=== PATIENT | female | born 1955 | race Caucasian/White ===

== ENCOUNTER 2019-03-26 11:33 | Inpatient (IN) | payer MEDICARE, OTHER ==
[2019-03-26] MEDS ORDERED: NORMAL SALINE 500 ML IV ONE (11:53)
[2019-03-26] MEDS ORDERED: LORAZEPAM INJ 2 MG/1 ML VIAL IV ONE (11:53)
[2019-03-26] MEDS ORDERED: IPRATROPIUM/ALBUTEROL 0.5-2.5 MG/3 ML AMPUL NEB ONE ×2 (11:54→13:37)
[2019-03-26] MEDS ORDERED: METHYLPREDNISOLONE INJ 125 MG/2 ML SDV IV ONE (11:54)
--- NOTE | 2019-03-26 11:54 | ER Document Report ---
ED Respiratory Problem - General Stated Complaint: SHORTNESS OF BREATH Time Seen by Provider: 03/26/19 11:39 Primary Care Provider: MAYA LOPEZ MD [Primary Care Provider] - Follow up as needed Notes: 63-year-old female patient, smoker to the emergency department for evaluation of shortness of breath. Patient states that she has been short of breath for approximately 2 days. Getting worse. Movement makes it worse. Went to the [facility] doctor today and her heart rate was in the 130s and 140s so sent here by ambulance. Denies any chest pain. She does have some swelling of the ankles. Does complain of a cough and fever at home. - HPI Patient complains to provider of: COPD, Cough, Short of breath - Related Data Allergies/Adverse Reactions: Penicillins Allergy (Verified 03/26/19 12:24) Tetracyclines Allergy (Verified 03/26/19 12:24) Past Medical History - General Information source: Patient - Social History Smoking Status: Current Every Day Smoker Cigarette use (# per day): Yes Frequency of alcohol use: None Drug Abuse: None Family History: Reviewed & Not Pertinent - Medical History Notes: Diabetes, hypertension Review of Systems - Review of Systems Notes: Constitutional: denies: Chills, Diaphoresis, +Fever, -Malaise, -W-eakness EENT: denies: Eye discharge, Blurred vision, Tearing, Double vision, Nose simba estion, Nose discharge, Throat swelling, Mouth pain Cardiovascular: Denies chest pain. Does complain of heart racing and some dyspnea. Respiratory: Complaining of shortness of breath, cough, wheeze Gastrointestinal: denies: Abdominal pain, Diarrhea, Nausea, Vomiting, Black stools, bright red blood in stool Genitourinary: denies: Burning, Dysuria, Discharge, Frequency, Flank pain, Hematuria Musculoskeletal: denies: Joint pain, Joint swelling, Muscle pain, Muscle stiffness, back pain Hematologic/Lymphatic: denies: Anemia, Easy bleeding, Easy bruising, Blood clots Neurological/Psychological: denies: Confusion, Dementia, Depression, Loss of consciousness Skin: No lesions, no masses, no skin breakdown, no abscesses Physical Exam - Vital signs Vitals: Temp 97.9 F 03/26/19 11:35 Interpretation: Tachycardic - General General appearance: Appears well, Alert - HEENT Head: Normocephalic, Atraumatic Eyes: Normal Pupils: PERRL - Respiratory Respiratory status: Respiratory distress, Pursed lip breathing, Tachypnea Chest status: Nontender Breath sounds: Decreased air movement, Wheezing Chest palpation: Normal - Cardiovascular Rhythm: Tachycardia Heart sounds: Normal auscultation Murmur: No - Abdominal Inspection: Normal Distension: No distension Bowel sounds: Normal Tenderness: Nontender Organomegaly: No organomegaly - Back Back: Normal, Nontender - Extremities General upper extremity: Normal inspection, Nontender, Normal color, Normal ROM, Normal temperature General lower extremity: Normal inspection, Nontender, Edema - Trace edema bilateral lower extremities, Normal color, Normal ROM, Normal temperature. No: Patrick's sign - Neurological Neuro grossly intact: Yes Cognition: Normal Orientation: AAOx4 Regla Coma Scale Eye Opening: Spontaneous [place] Coma Scale Verbal: Oriented [place] Coma Scale Motor: Obeys Commands [place] Coma Scale Total: 15 Speech: Normal Motor strength normal: LUE, RUE, LLE, RLE Sensory: Normal - Psychological Associated symptoms: Normal affect, Normal mood - Skin Skin Temperature: Warm Skin Moisture: Dry Skin Color: Normal Course - Re-evaluation Re-evalutation: 03/26/19 12:12 Patient seen immediately on arrival. Heart rate was in the 150s.. Sinus tachycardia on the monitor with some respiratory distress and history of COPD with some wheezing so started breathing treatments. EKG initially shows atrial fibrillation with a rapid ventricular response. Appears to be now more irregular on the monitor so likely this is the case. I am going to go ahead and treat her respiratory issues but also will give her a small dose of diltiazem as we try and figure this issue out. I did review the chest x-ray and there does not appear to be a pneumothorax or any obvious infiltrates however due to the hi gh possibility of treating her for COPD will go ahead and start with blood cultures and get an ABG as well as she has multiple cofounding factors that can make this diagnosis difficult. 03/26/19 14:58 Laboratory 03/26/19 03/26/19 03/26/19 12:02 12:02 12:02 WBC 9.3 RBC 5.12 Hgb 15.4 Hct 44.7 MCV 87 MCH 30.2 MCHC 34.5 RDW 13.8 Plt Count 193 Seg Neutrophils % 78.7 H Lymphocytes % 12.9 L Monocytes % 6.9 Eosinophils % 0.7 Basophils % 0.8 Absolute Neutrophils 7.3 Absolute Lymphocytes 1.2 Absolute Monocytes 0.6 Absolute Eosinophils 0.1 Absolute Basophils 0.1 PT INR APTT Carbonic Acid HCO3/H2CO3 Ratio ABG pH ABG pCO2 ABG pO2 ABG HCO3 ABG Total CO2 ABG O2 Saturation ABG Base Excess FiO2 Sodium 136.4 L Potassium 3.8 Chloride 93 L Carbon Dioxide 31 H Anion Gap 12 BUN 14 Creatinine 0.86 Est GFR ( Amer) > 60 Est GFR (Non-Af Amer) > 60 Glucose 187 H Lactic Acid Calcium 9.7 Total Bilirubin 0.9 Direct Bilirubin 0.4 Neonat Total Bilirubin Not Reportable Neonat Direct Bilirubin Not Reportable Neonat Indirect Bili Not Reportable AST 41 H ALT 41 Alkaline Phosphatase 68 Creatine Kinase 724 H CK-MB (CK-2) 2.72 Troponin I < 0.012 NT-Pro-B Natriuret Pep 190 Total Protein 7.8 Albumin 4.6 03/26/19 03/26/19 03/26/19 12:02 12:02 12:02 WBC RBC Hgb Hct MCV MCH MCHC RDW Plt Count Seg Neutrophils % Lymphocytes % Monocytes % Eosinophils % Basophils % Absolute Neutrophils Absolute Lymphocytes Absolute Monocytes Absolute Eosinophils Absolute Basophils PT 14.2 INR 1.10 APTT 30.9 Carbonic Acid 1.32 HCO3/H2CO3 Ratio 21:1 ABG pH 7.43 ABG pCO2 43.8 ABG pO2 80.5 ABG HCO3 28.3 H ABG Total CO2 29.6 H ABG O2 Saturation 96.1 ABG Base Excess 3.3 FiO2 3L Sodium Potassium Chloride Carbon Dioxide Anion Gap BUN Creatinine Est GFR ( Amer) Est GFR (Non-Af Amer) Glucose Lactic Acid 1.5 Calcium Total Bilirubin Direct Bilirubin Neonat Total Bilirubin Neonat Direct Bilirubin Neonat Indirect Bili AST ALT Alkaline Phosphatase Creatine Kinase CK-MB (CK-2) Troponin I NT-Pro-B Natriuret Pep Total Protein Albumin Chest X-Ray 03/26/19 11:35 IMPRESSION: NO ACUTE RADIOGRAPHIC FINDING IN THE CHEST. Chest/Abdomen CTA 03/26/19 13:05 IMPRESSION: 1. Examination mildly limited by breath motion artifact. Within this limitation, no evidence of pulmonary embolism. 2. Bibasilar bronchial wall thickening clustered nodular opacity in the left lung base, likely sequelae of infection or aspiration. 3. Emphysema. 4. Hepatic steatosis. 03/26/19 14:59 Patient doing much better at this time. Heart rate is coming down nicely but still on a diltiazem drip and still irregular. Treating with some Levaquin. No obvious PE. Will admit to the ICU. Dr. Alicea excepting - Vital Signs Vital signs: Temp Pulse Resp BP Pulse Ox 97.9 F 22 H 122/61 96 03/26/19 11:35 03/26/19 14:41 03/26/19 14:41 03/26/19 14:41 - Laboratory Result Diagrams: 03/26/19 12:02 03/26/19 12:02 Laboratory results interpreted by me: 03/26/19 03/26/19 03/26/19 12:02 12:02 12:02 Seg Neutrophils % 78.7 H Lymphocytes % 12.9 L ABG HCO3 28.3 H ABG Total CO2 29.6 H Sodium 136.4 L Chloride 93 L Carbon Dioxide 31 H Glucose 187 H AST 41 H Creatine Kinase 724 H - EKG Interpretation by Mo EKG shows normal: [place], Intervals, QRS Complexes, ST-T Waves Rate: Tachycardia Rhythm: A.Fib Critical Care Note - Critical Care Note Total time excluding time spent on procedures (mins): 45 Comments: Acute respiratory distress, tachycardia arrhythmia, rapid assessment, medication management. Discharge - Discharge Clinical Impression: Atrial fibrillation with rapid ventricular response, COPD exacerbation Condition: Good Disposition: ADMITTED INPATIENT Admitting Provider: Deanne (Hospitalist) Unit Admitted: IMCU Referrals: MAYA LOPEZ MD [Primary Care Provider] - Follow up as needed
[2019-03-26] MEDS ORDERED: DILTIAZEM HCL/D5W 125 MG/125 ML RTUINJ IV PRN ×2 (12:13→15:44)
[2019-03-26] MEDS ORDERED: DILTIAZEM HCL INJ 25 MG/5 ML VIAL IV ONE (12:13)
--- NOTE | 2019-03-26 12:25 | RADIOLOGY REPORT (SQ) ---
EXAM DESCRIPTION: CHEST SINGLE VIEW COMPLETED DATE/TIME: 03/26/2019 12:12 pm REASON FOR STUDY: bed mp db COMPARISON: None. EXAM PARAMETERS: NUMBER OF VIEWS: One view. TECHNIQUE: Single frontal radiographic view of the chest acquired. RADIATION DOSE: NA LIMITATIONS: None. FINDINGS: LUNGS AND PLEURA: No opacities, masses or pneumothorax. No pleural effusion. MEDIASTINUM AND HILAR STRUCTURES: No masses. Contour normal. HEART AND VASCULAR STRUCTURES: Heart normal in size. Normal vasculature. BONES: No acute findings. HARDWARE: None in the chest. OTHER: No other significant finding. IMPRESSION: NO ACUTE RADIOGRAPHIC FINDING IN THE CHEST. TECHNICAL DOCUMENTATION: JOB ID: [id number] [employer]- All Rights Reserved Reading location - IP/workstation name: [email or web address]
[2019-03-26 12:39] LABS: ABSOLUTE BASOPHILS # (AUTO) 0.1 10^3/uL (0.0-0.2); ABSOLUTE EOSINOPHILS # (AUTO) 0.1 10^3/uL (0.0-0.6); ABSOLUTE LYMPHOCYTES (AUTO) 1.2 10^3/uL (0.5-4.7); ABSOLUTE MONOCYTES (AUTO) 0.6 10^3/uL (0.1-1.4); ABSOLUTE NEUT (AUTO) 7.3 10^3/uL (1.7-8.2); BASOPHILS % (AUTO) 0.8 % (0-2); EOSINOPHILS % (AUTO) 0.7 % (0-6); HEMATOCRIT 44.7 % (36.0-47.0); HEMOGLOBIN 15.4 g/dL (12.0-15.5); LYMPHOCYTES % (AUTO) 12.9 % (13-45); MEAN CORPUSCULAR HEMOGLOBIN 30.2 pg (27.0-33.4); MEAN CORPUSCULAR HGB CONC 34.5 g/dL (32.0-36.0); MEAN CORPUSCULAR VOLUME 87 fl (80-97); MONOCYTES % (AUTO) 6.9 % (3-13); PLATELET COUNT 193 10^3/uL (150-450); RED BLOOD COUNT 5.12 10^6/uL (3.72-5.28); RED CELL DISTRIBUTION WIDTH 13.8 % (11.5-14.0); SEGMENTED NEUTROPHILS % (AUTO) 78.7 % (42-78); TOTAL CELLS COUNTED % (AUTO) 100 %; WHITE BLOOD COUNT 9.3 10^3/uL (4.0-10.5)
[2019-03-26 12:41] LABS: ARTERIAL BLOOD BASE EXCESS 3.3 mmol/L; ARTERIAL BLOOD H2CO3 1.32 mmol/L (1.05-1.35); ARTERIAL BLOOD HCO3 28.3 mmol/L (20-24); ARTERIAL BLOOD O2 SATURATION 96.1 % (94-98); ARTERIAL BLOOD PCO2 43.8 mmHg (35-45); ARTERIAL BLOOD PH 7.43 (7.35-7.45); ARTERIAL BLOOD PO2 80.5 mmHg (80-100); ARTERIAL BLOOD TOTAL CO2 29.6 mmol/L (21-25)
[2019-03-26 12:42] LABS: ARTERIAL BLOOD FIO2 3L
--- NOTE | 2019-03-26 12:43 | EKG REPORT ---
SEVERITY:- ABNORMAL ECG - ATRIAL FIBRILLATION WITH RVR 147. LEFT ANTERIOR FASCICULAR BLOCK REPOLARIZATION ABNORMALITY, PROB RATE RELATED : Confirmed by: Garrison Munson MD 26-Mar-2019 12:42:23
[2019-03-26 12:49] LABS: PARTIAL THROMBOPLASTIN TIME 30.9 SEC (23.5-35.8); PROTHROMBIN TIME 14.2 SEC (11.4-15.4)
[2019-03-26 12:57] LABS: ALANINE AMINOTRANSFERASE 41 U/L (9-52); ALBUMIN 4.6 g/dL (3.5-5.0); ALKALINE PHOSPHATASE 68 U/L (38-126); ANION GAP 12 (5-19); ASPARTATE AMINO TRANSFERASE 41 U/L (14-36); BILIRUBIN,DIRECT 0.4 mg/dL (0.0-0.4); BILIRUBIN,TOTAL 0.9 mg/dL (0.2-1.3); BLOOD UREA NITROGEN 14 mg/dL (7-20); CALCIUM 9.7 mg/dL (8.4-10.2); CARBON DIOXIDE 31 mmol/L (22-30); CHLORIDE 93 mmol/L (98-107); CREATINE KINASE 724 U/L (30-135); GLUCOSE 187 mg/dL (75-110); POTASSIUM 3.8 mmol/L (3.6-5.0); SODIUM 136.4 mmol/L (137-145); TOTAL PROTEIN 7.8 g/dL (6.3-8.2)
[2019-03-26 13:07] LABS: CREATINE KINASE MB 2.72 ng/mL (<4.55); NT PRO BNP 190 pg/mL (5-900)
[2019-03-26 13:08] LABS: TROPONIN I < 0.012 ng/mL
[2019-03-26] MEDS ORDERED: ALBUTEROL SULFATE 0.083% NEB 2.5 MG/3 ML AMPUL NEB ONE (13:38)
[2019-03-26] MEDS ORDERED: LEVOFLOXACIN 750 MG/D5W RTU 750 MG/150 ML RTUPB IV ONE (13:57)
--- NOTE | 2019-03-26 14:29 | RADIOLOGY REPORT (SQ) ---
EXAM DESCRIPTION: CTA CHEST COMPLETED DATE/TIME: 03/26/2019 2:16 pm REASON FOR STUDY: sob, tachycardia COMPARISON: None. TECHNIQUE: CT scan of the chest performed using helical scanning technique with dynamic intravenous contrast injection. Images reviewed with lung, soft tissue and bone windows. Reconstructed coronal and sagittal MPR images reviewed. Additional 3 dimensional post-processing performed to develop Maximal Intensity Projection images (IN P). All images stored on PACS. All CT scanners at this facility use dose modulation, iterative reconstruction, and/or weight based d osing when appropriate to reduce radiation dose to as low as reasonably achievable (ALARA). [facility]: Dose Right [facility]: CareDose [facility]: Dose Right [facility]: Teradose 4D [facility]: Speek CONTRAST TYPE AND DOSE: contrast/concentration: Isovue 350.00 mg/ml; Total Contrast Delivered: 83.0 ml; Total Saline Delivered: 73.4 ml Contrast bolus adequate for pulmonary arteries and aorta. RENAL FUNCTION: GFR > 60. RADIATION DOSE: CT Rad equipment meets quality standard of care and radiation dose reduction techniq ues were employed. CTDIvol: 16.5 - 24.8 mGy. DLP: 983 mGy-cm. . LIMITATIONS: Breath motion artifact. FINDINGS: LUNGS AND PLEURA: Mild to moderate emphysema. Bibasilar bronchial wall thickening. Clust ered nodular opacity in the left lung base. AORTA AND GREAT VESSELS: No aneurysm. Contrast bolus not optimized for the aorta. HEART: No pericardial effusion. Knees is good PULMONARY ARTERIES: No emboli visualized in the main pulmonary arteries or the segmental branches. HILAR AND MEDIASTINAL STRUCTURES: No identified masses or abnormal nodes. HARDWARE: None in the chest. UPPER ABDOMEN: Hepatic steatosis. Status post cholecystectomy. THYROID AND OTHER SOFT TISSUES: No masses. No adenopathy. BONES: No acute or significant finding. 3D MIPS: Confirm above findings. OTHER: No other significant finding. IMPRESSION: 1. Examination mildly limited by breath motion artifact. Within this limitation, no ev idence of pulmonary embolism. 2. Bibasilar bronchial wall thickening clustered nodular opacity in the left lung base, likely se[place] lae of infection or aspiration. 3. Emphysema. 4. Hepatic steatosis. COMMENT: Quality ID # [id number]: Final reports with documentation of one or more dose reduction techniques (e.g., Automated exposure control, adjustment of the mA and/or kV according to patient size, use of iterative reconstruction technique) TECHNICAL DOCUMENTATION: JOB ID: [id number] [employer]- All Rights Reserved Reading location - IP/workstation name: [email or web address]
[2019-03-26] MEDS ORDERED: DEXTROSE 50%-WATER 25 GM/50 ML DISP.SYRIN IV PRN ×2 (15:46)
[2019-03-26] MEDS ORDERED: GLUCAGON,HUMAN RECOMB 1 MG INJ IM PRN (15:46)
[2019-03-26] MEDS ORDERED: DEXTROSE 40% GEL 15 GM TUBE PO PRN ×2 (15:46)
--- NOTE | 2019-03-26 16:00 | PDOC H&P ---
History of Present Illness Admission Date/PCP: 03/26/19 15:11 MYAA LOPEZ MD Patient complains of: cough, fever History of Present Illness: VENUS MCGUIRE is a 63 year old female with a past medical history of hypertension, diabetes mellitus type 2, and chronic heavy smoking who presented with cough, wheezing and fever. Patient says that she started having some nasal congestion last Saturday and this progressed to her having a sore throat. She says that 3 days ago, she started developing productive cough with whitish sputum which eventually became ye llowish. She reports subjective fever and chills yesterday. She also reported associated shortness of breath. She denies chest pain. In the ER, she was noted to have bilateral wheezing and was initially hypoxic at 89%. She was given breathing treatments and IV steroids and she reported significant relief from this. She denies prior diagnosis of COPD or asthma but says that she does smoke at least a pack of cigarettes a day and has been smoking since she was a teenager. She was also noted to be in A. fib with RVR upon presentation with a heart rate and 150s. She was started on Cardizem drip. She denies prior history of A. fib. Upon encounter, she looks much more comfortable. Heart rate down to 112. Blood pressures have been stable throughout. Past Medical History Cardiac Medical History: Reports: Atrial Fibrillation Pulmonary Medical History: Reports: Chronic Obstructive Pulmonary Disease (COPD) Endocrine Medical History: Reports: Diabetes Mellitus Type 2 Social History Smoking Status: Current Every Day Smoker Family History Family History: Reviewed & Not Pertinent Parental Family History Reviewed: Yes - no premature CAD Children Family History Reviewed: No Sibling(s) Family History Reviewed.: No Medication/Allergy Home Medications: Cetirizine HCl [Zyrtec 10 mg Tablet] 10 mg PO DAILY 03/26/19 Glyburide [Diabeta 2.5 mg Tablet] 2.5 mg PO DAILY 03/26/19 Hydrochlorothiazide [Hydrodiuril 25 mg Tablet] 25 mg PO QAM 03/26/19 Lisinopril [Prinivil 5 mg Tablet] 2.5 mg PO DAILY 03/26/19 Magnesium Oxide [Mag-Oxide] 200 mg PO DAILY 03/26/19 Metformin HCl [Glucophage 500 mg Tablet] 1,000 mg PO QAM 03/26/19 Metformin HCl [Glucophage 500 mg Tablet] 500 mg PO QPM 03/26/19 Allergies/Adverse Reactions: Penicillins Allergy (Verified 03/26/19 12:24) Tetracyclines Allergy (Verified 03/26/19 12:24) Review of Systems All systems: reviewed and no additional remarkable complaints except as stated - as mentioned on HPI Physical Exam Vital Signs: Temp Pulse Resp BP Pulse Ox 97.9 F 22 H 122/61 96 03/26/19 11:35 03/26/19 14:41 03/26/19 14:41 03/26/19 14:41 Intake & Output 03/25/19 03/26/19 03/27/19 06:59 06:59 06:59 Intake Total 3 Balance 3 Weight 214 lb 15.211 oz General appearance: PRESENT: no acute distress, well-developed, well-nourished Head exam: PRESENT: atraumatic, normocephalic Eye exam: PRESENT: conjunctiva pink, EOMI, PERRLA. ABSENT: scleral icterus Ear exam: PRESENT: normal external ear exam Mouth exam: PRESENT: moist, tongue midline Neck exam: ABSENT: carotid bruit, JVD, lymphadenopathy, thyromegaly Respiratory exam: PRESENT: rales, rhonchi, wheezes Cardiovascular exam: PRESENT: RRR. ABSENT: diastolic murmur, rubs, systolic murmur Pulses: PRESENT: normal dorsalis pedis pul GI/Abdominal exam: PRESENT: normal bowel sounds, soft. ABSENT: distended, guarding, mass, organolmegaly, rebound, tenderness Rectal exam: PRESENT: deferred Neurological exam: PRESENT: alert, awake, oriented to person, oriented to place, oriented to time, oriented to situation, CN II-XII grossly intact. ABSENT: motor sensory deficit Results Laboratory Results: 03/26/19 12:02 03/26/19 12:02 03/26/19 03/26/19 03/26/19 12:02 12:02 12:02 WBC 9.3 RBC 5.12 Hgb 15.4 Hct 44.7 MCV 87 MCH 30.2 MCHC 34.5 RDW 13.8 Plt Count 193 Seg Neutrophils % 78.7 H Lymphocytes % 12.9 L Monocytes % 6.9 Eosinophils % 0.7 Basophils % 0.8 Absolute Neutrophils 7.3 Absolute Lymphocytes 1.2 Absolute Monocytes 0.6 Absolute Eosinophils 0.1 Absolute Basophils 0.1 Carbonic Acid HCO3/H2CO3 Ratio ABG pH ABG pCO2 ABG pO2 ABG HCO3 ABG O2 Saturation ABG Base Excess FiO2 Sodium 136.4 L Potassium 3.8 Chloride 93 L Carbon Dioxide 31 H Anion Gap 12 BUN 14 Creatinine 0.86 Est GFR ( Amer) > 60 Est GFR (Non-Af Amer) > 60 Glucose 187 H Lactic Acid 1.5 Calcium 9.7 Total Bilirubin 0.9 AST 41 H ALT 41 Alkaline Phosphatase 68 Total Protein 7.8 Albumin 4.6 03/26/19 12:02 WBC RBC Hgb Hct MCV MCH MCHC RDW Plt Count Seg Neutrophils % Lymphocytes % Monocytes % Eosinophils % Basophils % Absolute Neutrophils Absolute Lymphocytes Absolute Monocytes Absolute Eosinophils Absolute Basophils Carbonic Acid 1.32 HCO3/H2CO3 Ratio 21:1 ABG pH 7.43 ABG pCO2 43.8 ABG pO2 80.5 ABG HCO3 28.3 H ABG O2 Saturation 96.1 ABG Base Excess 3.3 FiO2 3L Sodium Potassium Chloride Carbon Dioxide Anion Gap BUN Creatinine Est GFR ( Amer) Est GFR (Non-Af Amer) Glucose Lactic Acid Calcium Total Bilirubin AST ALT Alkaline Phosphatase Total Protein Albumin 03/26/19 03/26/19 12:02 12:02 Creatine Kinase 724 H CK-MB (CK-2) 2.72 Troponin I < 0.012 NT-Pro-B Natriuret Pep 190 Impressions: Chest X-Ray 03/26/19 11:35 IMPRESSION: NO ACUTE RADIOGRAPHIC FINDING IN THE CHEST. Chest/Abdomen CTA 03/26/19 13:05 IMPRESSION: 1. Examination mildly limited by breath motion artifact. Within this limitation, no evidence of pulmonary embolism. 2. Bibasilar bronchial wall thickening clustered nodular opacity in the left lung base, likely sequelae of infection or aspiration. 3. Emphysema. 4. Hepatic steatosis. Assessment and Plan - Diagnosis (1) Acute respiratory failure with hypoxia Is this a current diagnosis for this admission?: Yes Plan: Secondary to committee acquired pneumonia and possible COPD exacerbation. Initially hypoxic at 89% but not saturating in the high 90s on nasal cannula. (2) Atrial fibrillation with rapid ventricular response Is this a current diagnosis for this admission?: Yes Plan: New onset. Check TSH. Currently Cardizem drip. Will start p.o. Lopressor and try to wean off Cardizem drip. Also discussed anticoagulation including benefits and risks of bleeding. Patient wants to think about this in the next 24 hours and says she will update us if she wants to pursue anticoagulation. (3) Community acquired pneumonia Is this a current diagnosis for this admission?: Yes Plan: Chest CTA shows nodular opacity in left base versus possible pneumonia. Patient has penicillin allergy and says she develops multiple welps on her skin when she had penicillin before. We will continue levofloxacin. Will order sputum culture. (4) HTN (hypertension) Is this a current diagnosis for this admission?: Yes Plan: Resume lisinopril. Will add metoprolol. (5) DM type 2 (diabetes mellitus, type 2) Is this a current diagnosis for this admission?: Yes Plan: Sliding scale for now. Accu-Cheks. (6) COPD exacerbation Is this a current diagnosis for this admission?: Yes Plan: She denies prior diagnosis of COPD. CTA shows emphysema. She does have significant wheezing and has been a chronic heavy smoker. Continue breathing t reatments and also start patient IV steroids. - Time Time Spent with patient: 25-34 minutes
--- NOTE | 2019-03-26 16:01 | ADVANCED CARE ---
- Diagnosis (1) Acute respiratory failure with hypoxia Diagnosis Current: Yes (2) Atrial fibrillation with rapid ventricular response Diagnosis Current: Yes (3) COPD exacerbation Diagnosis Current: Yes (4) Community acquired pneumonia Diagnosis Current: Yes (5) DM type 2 (diabetes mellitus, type 2) Diagnosis Current: Yes Resuscitation Status: Full Code Discussion: Discussed with patient. She says that she is a full code at the moment and prefers chest compressions, defibrillation and mechanical ventilation if the need arises. She does express she would only prefer temporary and not long-term ventilation. She says she will also further discuss this with her , Tyrone Dineroost who is also her surrogate medical decision maker.
[2019-03-26] MEDS: INSULIN LISPRO 100 UNIT/ML 3 ML VIAL SUBCUT SCH ×2 (16:27→21:48)
[2019-03-26] MEDS: IPRATROPIUM/ALBUTEROL 0.5-2.5 MG/3 ML AMPUL NEB SCH ×2 (16:27→21:48)
[2019-03-26] MEDS: METOPROLOL TARTRATE 50 MG TABLET PO SCH (16:27)
[2019-03-26 18:59] LABS: APPEARANCE,URINE CLEAR; BILIRUBIN,URINE NEGATIVE (NEGATIVE); COLOR,URINE YELLOW; GLUCOSE, URINE 50 mg/dL (NEGATIVE); KETONES,URINE NEGATIVE (NEGATIVE); LEUKOCYTE ESTERASE,URINE NEGATIVE (NEGATIVE); NITRITE,URINE NEGATIVE (NEGATIVE); PROTEIN,URINE 100 mg/dL (NEGATIVE); URINE SPECIFIC GRAVITY 1.027; UROBILINOGEN,URINE NEGATIVE mg/dL (<2.0)
[2019-03-26] MEDS: METHYLPREDNISOLONE INJ 40 MG/1 ML SDV IV SCH (21:49)
[2019-03-26] MEDS: HEPARIN SOD (PORCINE) 5,000 UNIT/ML 1 ML VIAL SUBCUT SCH (21:49)
[2019-03-26] MEDS ORDERED: TRAZODONE HCL 50 MG TABLET PO ONE (23:00)
[2019-03-26] MEDS ORDERED: METOPROLOL TARTRATE 50 MG TABLET PO ONE (23:45)
[2019-03-26] MEDS ORDERED: NICOTINE 14 MG/24 HR PATCH.TD24 TD ONE (23:45)
[2019-03-27] MEDS: IPRATROPIUM/ALBUTEROL 0.5-2.5 MG/3 ML AMPUL NEB SCH ×7 (00:33→23:51)
[2019-03-27] MEDS: METOPROLOL TARTRATE 50 MG TABLET PO SCH ×2 (05:47→19:25)
[2019-03-27] MEDS: INSULIN LISPRO 100 UNIT/ML 3 ML VIAL SUBCUT SCH ×4 (08:37→21:28)
[2019-03-27] MEDS ORDERED: MAGNESIUM OXIDE 200 MG PO SCH (10:00)
[2019-03-27] MEDS: LISINOPRIL 5 MG TABLET PO SCH (11:00)
[2019-03-27] MEDS: HEPARIN SOD (PORCINE) 5,000 UNIT/ML 1 ML VIAL SUBCUT SCH ×2 (11:00→21:18)
[2019-03-27] MEDS: MAGNESIUM OXIDE 400 MG TABLET PO SCH (11:00)
[2019-03-27] MEDS: LEVOFLOXACIN 750 MG/D5W RTU 750 MG/150 ML RTUPB IV SCH (11:00)
[2019-03-27] MEDS: METHYLPREDNISOLONE INJ 40 MG/1 ML SDV IV SCH ×2 (12:28→21:18)
[2019-03-27] MEDS: NICOTINE 14 MG/24 HR PATCH.TD24 TD SCH (12:37)
--- NOTE | 2019-03-27 15:10 | PDOC PROGRESS REPORT ---
Subjective Progress Note for:: 03/27/19 Subjective:: This is a 63 year old female with a past medical history of hypertension, diabetes mellitus type 2, and chronic heavy smoking who presented with cough, wheezing and fever. She was admitted for acute hypoxic respiratory failure secondary to pneumonia, COPD exacerbation patient is also noted to be in A. fib with RVR. No acute event overnight. Patient says that she feels better today. She says her shortness of breath is better but she does not feel like she is at her baseline yet. Currently saturating well on nasal cannula. We will try to wean off O2 today. She converted to sinus rhythm last night and was weaned off Cardizem drip. Reason For Visit: ACUTE HYPOXIC RESPIRATORY FAILURE, PNEUMONIA Physical Exam Vital Signs: Temp Pulse Resp BP Pulse Ox 98.0 F 90 18 114/68 90 L 03/27/19 03:52 03/27/19 12:00 03/27/19 12:00 03/27/19 03:52 03/27/19 08:42 Intake & Output 03/26/19 03/27/19 03/28/19 06:59 06:59 06:59 Intake Total 1140 Balance 1140 Weight 216 lb 4.375 oz General appearance: PRESENT: no acute distress, well-developed, well-nourished Head exam: PRESENT: atraumatic, normocephalic Eye exam: PRESENT: conjunctiva pink, EOMI, PERRLA. ABSENT: scleral icterus Ear exam: PRESENT: normal external ear exam Mouth exam: PRESENT: moist, tongue midline Neck exam: ABSENT: carotid bruit, JVD, lymphadenopathy, thyromegaly Respiratory exam: PRESENT: rhonchi, wheezes. ABSENT: rales Cardiovascular exam: PRESENT: RRR. ABSENT: diastolic murmur, rubs, systolic murmur Pulses: PRESENT: normal dorsalis pedis pul GI/Abdominal exam: PRESENT: normal bowel sounds, soft. ABSENT: distended, guarding, mass, organolmegaly, rebound, tenderness Rectal exam: PRESENT: deferred Neurological exam: PRESENT: alert, awake, oriented to person, oriented to place, oriented to time, oriented to situation, CN II-XII grossly intact. ABSENT: motor sensory deficit Results Laboratory Results: 03/26/19 12:02 03/26/19 12:02 03/26/19 03/26/19 12:02 15:49 TSH 2.86 Urine Color YELLOW Urine Appearance CLEAR Urine pH 6.0 Ur Specific [place] 1.027 Urine Protein 100 H Urine Glucose (UA) 50 H Urine Ketones NEGATIVE Urine Blood SMALL H Urine Nitrite NEGATIVE Ur Leukocyte Esterase NEGATIVE Urine WBC (Auto) 1 Urine RBC (Auto) 1 03/26/19 03/26/19 12:02 12:02 Creatine Kinase 724 H CK-MB (CK-2) 2.72 Troponin I < 0.012 NT-Pro-B Natriuret Pep 190 Impressions: Chest X-Ray 03/26/19 11:35 IMPRESSION: NO ACUTE RADIOGRAPHIC FINDING IN THE CHEST. Chest/Abdomen CTA 03/26/19 13:05 IMPRESSION: 1. Examination mildly limited by breath motion artifact. Within this limitation, no evidence of pulmonary embolism. 2. Bibasilar bronchial wall thickening clustered nodular opacity in the left lung base, likely sequelae of infection or aspiration. 3. Emphysema. 4. Hepatic steatosis. Assessment and Plan - Diagnosis (1) Acute respiratory failure with hypoxia Is this a current diagnosis for this admission?: Yes Plan: Secondary to community acquired pneumonia and possible COPD exacerbation. Initially hypoxic at 89% but not saturating in the high 90s on nasal cannula. 03/27: Improving. Wean off O2 today. (2) Atrial fibrillation with rapid ventricular response Is this a current diagnosis for this admission?: Yes Plan: New onset. Check TSH. Currently Cardizem drip. Will start p.o. Lopressor and try to wean off Cardizem drip. Also discussed anticoagulation including benefits and risks of bleeding. Patient wants to think about this in the next 24 hours and says she will update us if she wants to pursue anticoagulation. 03/27: She has converted to normal sinus rhythm. Off Cardizem drip. Continue p.o. Lopressor. She does not want to proceed with anticoagulation after discussing risk and benefits. (3) Community acquired pneumonia Is this a current diagnosis for this admission?: Yes Plan: Chest CTA shows nodular opacity in left base versus possible pneumonia. Patient has penicillin allergy and says she develops multiple welps on her skin when she had penicillin before. We will continue levofloxacin. Will order sputum culture. 03/27: Improving. Continue levofloxacin. (4) HTN (hypertension) Is this a current diagnosis for this admission?: Yes Plan: Continue lisinopril and metoprolol. (5) DM type 2 (diabetes mellitus, type 2) Is this a current diagnosis for this admission?: Yes Plan: Sliding scale for now. Accu-Cheks. (6) COPD exacerbation Is this a current diagnosis for this admission?: Yes Plan: She denies prior diagnosis of COPD. CTA shows emphysema. She does have significant wheezing and has been a chronic heavy smoker. Continue breathing t reatments and also start patient IV steroids. 03/27: Improving. Continue steroids and breathing treatments. - Time Time Spent with patient: 25-34 minutes
[2019-03-27] MEDS ORDERED: TRAZODONE HCL 50 MG TABLET PO PRN (21:44)
[2019-03-28] MEDS: IPRATROPIUM/ALBUTEROL 0.5-2.5 MG/3 ML AMPUL NEB SCH ×6 (03:55→23:52)
[2019-03-28] MEDS: METOPROLOL TARTRATE 50 MG TABLET PO SCH ×2 (06:04→17:32)
[2019-03-28] MEDS: INSULIN LISPRO 100 UNIT/ML 3 ML VIAL SUBCUT SCH ×4 (07:50→22:20)
[2019-03-28] MEDS: NICOTINE 14 MG/24 HR PATCH.TD24 TD SCH (09:29)
[2019-03-28] MEDS: LEVOFLOXACIN 750 MG/D5W RTU 750 MG/150 ML RTUPB IV SCH (09:30)
[2019-03-28] MEDS: MAGNESIUM OXIDE 400 MG TABLET PO SCH (09:30)
[2019-03-28] MEDS: HEPARIN SOD (PORCINE) 5,000 UNIT/ML 1 ML VIAL SUBCUT SCH ×2 (09:30→21:06)
[2019-03-28] MEDS: LISINOPRIL 5 MG TABLET PO SCH (09:31)
[2019-03-28] MEDS: PREDNISONE 20 MG TABLET PO SCH ×2 (09:31→17:32)
--- NOTE | 2019-03-28 11:43 | PDOC PROGRESS REPORT ---
Subjective Progress Note for:: 03/28/19 Subjective:: This is a 63 year old female with a past medical history of hypertension, diabetes mellitus type 2, and chronic heavy smoking who presented with cough, wheezing and fever. She was admitted for acute hypoxic respiratory failure secondary to pneumonia, COPD exacerbation patient is also noted to be in A. fib with RVR. 03/27: Patient says that she feels better today. She says her shortness of breath is better but she does not feel like she is at her baseline yet. Currently saturating well on nasal cannula. We will try to wean off O2 today. She converted to sinus rhythm last night and was weaned off Cardizem drip. 03/28: No acute event overnight. Currently saturating on nasal cannula. She says that her shortness of breath continues to significantly improve but she does not think she is at her baseline yet. Wean off O2 today and we will switch IV steroids to p.o. Reason For Visit: ACUTE HYPOXIC RESPIRATORY FAILURE, PNEUMONIA Physical Exam Vital Signs: Temp Pulse Resp BP Pulse Ox 97.7 F 74 18 112/65 91 L 03/28/19 07:31 03/28/19 08:02 03/28/19 08:02 03/28/19 07:31 03/28/19 08:02 Intake & Output 03/27/19 03/28/19 03/29/19 06:59 06:59 06:59 Intake Total 1140 2552 Balance 1140 2552 Weight 216 lb 4.375 oz 216 lb 4.375 oz General appearance: PRESENT: no acute distress, well-developed, well-nourished Head exam: PRESENT: atraumatic, normocephalic Eye exam: PRESENT: conjunctiva pink, EOMI, PERRLA. ABSENT: scleral icterus Ear exam: PRESENT: normal external ear exam Mouth exam: PRESENT: moist, tongue midline Neck exam: ABSENT: carotid bruit, JVD, lymphadenopathy, thyromegaly Respiratory exam: PRESENT: rhonchi, wheezes. ABSENT: rales Cardiovascular exam: PRESENT: RRR. ABSENT: diastolic murmur, rubs, systolic murmur Pulses: PRESENT: normal dorsalis pedis pul GI/Abdominal exam: PRESENT: normal bowel sounds, soft. ABSENT: distended, guarding, mass, organolmegaly, rebound, tenderness Rectal exam: PRESENT: deferred Extremities exam: PRESENT: full ROM. ABSENT: calf tenderness, clubbing, pedal edema Neurological exam: PRESENT: alert, awake, oriented to person, oriented to place, oriented to time, oriented to situation, CN II-XII grossly intact. ABSENT: motor sensory deficit Results Laboratory Results: 03/26/19 12:02 03/26/19 12:02 03/26/19 03/26/19 12:02 12:02 Creatine Kinase 724 H CK-MB (CK-2) 2.72 Troponin I < 0.012 NT-Pro-B Natriuret Pep 190 Impressions: Chest X-Ray 03/26/19 11:35 IMPRESSION: NO ACUTE RADIOGRAPHIC FINDING IN THE CHEST. Chest/Abdomen CTA 03/26/19 13:05 IMPRESSION: 1. Examination mildly limited by breath motion artifact. Within t his limitation, no evidence of pulmonary embolism. 2. Bibasilar bronchial wall thickening clustered nodular opacity in the left lung base, likely sequelae of infection or aspiration. 3. Emphysema. 4. Hepatic steatosis. Assessment and Plan - Diagnosis (1) Acute respiratory failure with hypoxia Is this a current diagnosis for this admission?: Yes Plan: Secondary to community acquired pneumonia and possible COPD exacerbation. Initially hypoxic at 89% but not saturating in the high 90s on nasal cannula. 03/28: Improving. Wean off O2 today. (2) Atrial fibrillation with rapid ventricular response Is this a current diagnosis for this admission?: Yes Plan: New onset. Check TSH. Currently Cardizem drip. Will start p.o. Lopressor and try to wean off Cardizem drip. Also discussed anticoagulation including benef its and risks of bleeding. Patient wants to think about this in the next 24 hours and says she will update us if she wants to pursue anticoagulation. 03/27: She has converted to normal sinus rhythm. Off Cardizem drip. Continue p.o. Lopressor. She does not want to proceed with anticoagulation after discussing risk and benefits. 03/28: Remain in sinus rhythm, HR at 70. (3) Community acquired pneumonia Is this a current diagnosis for this admission?: Yes Plan: Chest CTA shows nodular opacity in left base versus possible pneumonia. Patient has penicillin allergy and says she develops multiple welps on her skin when she had penicillin before. We will continue levofloxacin. Will order sputum culture. 03/27: Improving. Continue levofloxacin. (4) COPD exacerbation Is this a current diagnosis for this admission?: Yes Plan: She denies prior diagnosis of COPD. CTA shows emphysema. She does have significant wheezing and has been a chronic heavy smoker. Continue breathing treatments and also start patient IV steroids. 03/27: Improving. Continue steroids and breathing treatments. 03/28: Switch IV steroids to prednisone. (5) HTN (hypertension) Is this a current diagnosis for this admission?: Yes Plan: Continue lisinopril and metoprolol. (6) DM type 2 (diabetes mellitus, type 2) Is this a current diagnosis for this admission?: Yes Plan: Sliding scale for now. Accu-Cheks. - Time Time Spent with patient: 25-34 minutes
[2019-03-28 13:28] LABS: ANION GAP 10 (5-19); BLOOD UREA NITROGEN 27 mg/dL (7-20); CALCIUM 9.5 mg/dL (8.4-10.2); CARBON DIOXIDE 30 mmol/L (22-30); CHLORIDE 94 mmol/L (98-107); GLUCOSE 219 mg/dL (75-110); POTASSIUM 4.3 mmol/L (3.6-5.0); SODIUM 134.1 mmol/L (137-145)
[2019-03-28] MEDS ORDERED: SENNOSIDES/DOCUSATE 8.6-50 MG 1 EACH TABLET PO PRN (18:38)
[2019-03-29] MEDS: IPRATROPIUM/ALBUTEROL 0.5-2.5 MG/3 ML AMPUL NEB SCH ×4 (04:19→16:39)
[2019-03-29] MEDS: METOPROLOL TARTRATE 50 MG TABLET PO SCH (05:52)
[2019-03-29] MEDS: INSULIN LISPRO 100 UNIT/ML 3 ML VIAL SUBCUT SCH ×2 (08:14→12:00)
[2019-03-29] MEDS: MAGNESIUM OXIDE 400 MG TABLET PO SCH (09:59)
[2019-03-29] MEDS: PREDNISONE 20 MG TABLET PO SCH (10:00)
[2019-03-29] MEDS: NICOTINE 14 MG/24 HR PATCH.TD24 TD SCH (10:00)
[2019-03-29] MEDS: LISINOPRIL 5 MG TABLET PO SCH (10:00)
[2019-03-29] MEDS: LEVOFLOXACIN 750 MG/D5W RTU 750 MG/150 ML RTUPB IV SCH (10:01)
[2019-03-29] MEDS: HEPARIN SOD (PORCINE) 5,000 UNIT/ML 1 ML VIAL SUBCUT SCH (10:01)
[2019-03-29 16:04] VITALS: BP 119/65
[2019-03-29] MEDS ORDERED: PREDNISONE 20 MG TABLET PO ONE (17:00)
[2019-03-29] MEDS ORDERED: METOPROLOL TARTRATE 50 MG TABLET PO ONE (17:00)
--- NOTE | 2019-03-29 17:02 | PDOC DISCHARGE SUMMARY ---
General - Admit/Disc Date/PCP Admission Date/Primary Care Provider: 03/26/19 15:11 MAYA LOPEZ MD Discharge Date: 03/29/19 - Discharge Diagnosis (1) Acute respiratory failure with hypoxia Is this a current diagnosis for this admission?: Yes (2) Atrial fibrillation with rapid ventricular response Is this a current diagnosis for this admission?: Yes (3) Community acquired pneumonia Is this a current diagnosis for this admission?: Yes (4) COPD exacerbation Is this a current diagnosis for this admission?: Yes (5) HTN (hypertension) Is this a current diagnosis for this admission?: Yes (6) DM type 2 (diabetes mellitus, type 2) Is this a current diagnosis for this admission?: Yes - Additional Information Resuscitation Status: Full Code Discharge Diet: Cardiac, Diabetic Discharge Activity: Activity As Tolerated, Balance Activity w/Rest Prescriptions: Fluticasone/Salmeterol [Advair 250-50 Diskus 14 Dose/Diskus] 1 inh IH Q12H #1 inhaler Levofloxacin [Levaquin 750 mg Tablet] 750 mg PO DAILY 5 Days #5 tab Metoprolol Tartrate [Lopressor 50 mg Tablet] 50 mg PO Q12A #60 tablet Nicotine [Nicoderm 14 mg/24 Hr Transdermal Patch] 1 each TD DAILY #30 patch.td24 Prednisone [Deltasone 20 mg Tablet] 20 mg PO BID 5 Days #10 tablet Tiotropium [place] [Spiriva Handihaler 5 Cap/Kit (18 Mcg/Cap)] 1 cap IH DAILY #30 capsule Home Medications: Cetirizine HCl [Zyrtec 10 mg Tablet] 10 mg PO DAILY 03/26/19 Glyburide [Diabeta 2.5 mg Tablet] 2.5 mg PO DAILY 03/26/19 Lisinopril [Prinivil 5 mg Tablet] 2.5 mg PO DAILY 03/26/19 Magnesium Oxide [Mag-Oxide] 200 mg PO DAILY 03/26/19 Metformin HCl [Glucophage 500 mg Tablet] 1,000 mg PO QAM 03/26/19 Metformin HCl [Glucophage 500 mg Tablet] 500 mg PO QPM 03/26/19 Fluticasone/Salmeterol [Advair 250-50 Diskus 14 Dose/Diskus] 1 inh IH Q12H #1 inhaler 03/29/19 Levofloxacin [Levaquin 750 mg Tablet] 750 mg PO DAILY 5 Days #5 tab 03/29/19 Metoprolol Tartrate [Lopressor 50 mg Tablet] 50 mg PO Q12A #60 tablet 03/29/19 Nicotine [Nicoderm 14 mg/24 Hr Transdermal Patch] 1 each TD DAILY #30 patch.td24 03/29/19 Prednisone [Deltasone 20 mg Tablet] 20 mg PO BID 5 Days #10 tablet 03/29/19 Tiotropium [place] [Spiriva Handihaler 5 Cap/Kit (18 Mcg/Cap)] 1 cap IH DAILY #30 capsule 03/29/19 History of Present Illness History of Present Illness: VENUS MCGUIRE is a 63 year old female with a past medical history of hypertension, diabetes mellitus type 2, and chronic heavy smoking who presented with cough, wheezing and fever. Patient says that she started having some nasal congestion last Saturday and this progressed to her having a sore throat. She says that 3 days ago, she started developing productive cough with whitish sputum which eventually became yellowish. She reports subjective fever and chills yesterday. She also reported associated shortness of breath. She denies chest pain. In the ER, she was noted to have bilateral wheezing and was initially hypoxic at 89%. She was given breathing treatments and IV steroids and she reported significant relief from this. She denies prior diagnosis of COPD or asthma but says that she does smoke at least a pack of cigarettes a day and has been smoking since she was a teenager. She was also noted to be in A. fib with RVR upon presentation with a heart rate and 150s. She was started on Cardizem drip. She denies prior history of A. fib. Upon encounter, she looks much more comfortable. Heart rate down to 112. Blood pressures have been stable throughout. Hospital Course Hospital Course: This is a 63 year old female with a past medical history of hypertension, diabetes mellitus type 2, and chronic heavy smoking who presented with cough, wheezing and fever. She was admitted for acute hypoxic respiratory failure secondary to pneumonia, COPD exacerbation. Patient is also noted to be in A. fib with RVR, new onset. She was easily weaned off Cardizem drip and she converted to normal normal sinus rhythm. She was well controlled with oral Lopressor. She did not want to pursue anticoagulation after discussing risk and benefits. Patient did significantly improve with IV steroids, breathing treatments and antibiotics. She felt she presented to her baseline but she did not qualify for home O2. She denies prior diagnosis of COPD. CTA showed emphysema. She does have significant wheezing and has been a chronic heavy smoker. She was evaluated by pulmonology. She will be discharged on short course of prednisone and will complete PO levofloxacin. She will follow-up with Dr. Lindsay for a full PFT. She will be started on Advair and Spiriva as well. Physical Exam Vital Signs: Temp Pulse Resp BP Pulse Ox 97.4 F 82 20 119/65 96 03/29/19 15:59 03/29/19 15:59 03/29/19 15:59 03/29/19 15:59 03/29/19 15:59 Intake & Output 03/28/19 03/29/19 03/30/19 06:59 06:59 06:59 Intake Total 2552 1886 650 Balance 2552 1886 650 Weight 216 lb 4.375 oz 196 lb 6.91 oz General appearance: PRESENT: no acute distress, well-developed, well-nourished Head exam: PRESENT: atraumatic, normocephalic Eye exam: PRESENT: conjunctiva pink, EOMI, PERRLA. ABSENT: scleral icterus Ear exam: PRESENT: normal external ear exam Mouth exam: PRESENT: moist, tongue midline Neck exam: ABSENT: carotid bruit, JVD, lymphadenopathy, thyromegaly Respiratory exam: PRESENT: rhonchi. ABSENT: rales, wheezes Cardiovascular exam: PRESENT: RRR. ABSENT: diastolic murmur, rubs, systolic murmur Pulses: PRESENT: normal dorsalis pedis pul GI/Abdominal exam: PRESENT: normal bowel sounds, soft. ABSENT: distended, guarding, mass, organolmegaly, rebound, tenderness Rectal exam: PRESENT: deferred Extremities exam: PRESENT: full ROM. ABSENT: calf tenderness, clubbing, pedal edema Neurological exam: PRESENT: alert, awake, oriented to person, oriented to place, oriented to time, oriented to situation, CN II-XII grossly intact. ABSENT: motor sensory deficit Results Laboratory Results: 03/26/19 12:02 03/28/19 13:03 03/26/19 03/26/19 12:02 12:02 Creatine Kinase 724 H CK-MB (CK-2) 2.72 Troponin I < 0.012 NT-Pro-B Natriuret Pep 190 Impressions: Chest X-Ray 03/26/19 11:35 IMPRESSION: NO ACUTE RADIOGRAPHIC FINDING IN THE CHEST. Chest/Abdomen CTA 03/26/19 13:05 IMPRESSION: 1. Examination mildly limited by breath motion artifact. Within this limitation, no evidence of pulmonary embolism. 2. Bibasilar bronchial wall thickening clustered nodular opacity in the left lung base, likely sequelae of infection or aspiration. 3. Emphysema. 4. Hepatic steatosis. Qualifiers - * PATIENT BEING DISCHARGED WITH ANY OF THE FOLLOWING DIAGNOSIS: No Acute Heart Failure - Is this a Heart Failure Patient?: No LVEF < 40%?: No- if no continue to question #3 3. Anticoagulant therapy for permanect/persistent/paraoxysmal Afib or Aflutter: N/A
== END 2019-03-29 17:06 | disposition home or self-care (01) | DRG 190 ==
LOC: ER 11:33 → EH 15:11 → 3S 22:15
PROVIDERS: ADMIT Internal Medicine; ATTEND Internal Medicine
DX: J44.0 Chronic obstructive pulmonary disease with (acute) lower respiratory infection (principal); J96.01 Acute respiratory failure with hypoxia; J18.9 Pneumonia, unspecified organism; I48.91 Unspecified atrial fibrillation; E11.51 Type 2 diabetes mellitus with diabetic peripheral angiopathy without gangrene; J44.1 Chronic obstructive pulmonary disease with (acute) exacerbation; I10 Essential (primary) hypertension; F17.210 Nicotine dependence, cigarettes, uncomplicated; F41.9 Anxiety disorder, unspecified; Z88.0 Allergy status to penicillin; Z88.8 Allergy status to other drugs, medicaments and biological substances; Z79.84 Long term (current) use of oral hypoglycemic drugs
CPT/HCPCS: 36415; 71045; 71275; 80048; 80053; 81001; 82550; 82553; 82803; 82962; 83036; 83605; 83880; 84443; 84484; 85025; 85610; 85730; 87040; 87070; 87205; 93005; 93010; 94640; 96372; 99283; J1644; J1815; J1956; J2060; J2920; J2930; J3490; J7040; J7512; J7620

== ENCOUNTER → 2019-07-31 | Outpatient (CLI) | payer MEDICARE, OTHER ==
--- NOTE | 2019-07-31 11:31 | RADIOLOGY REPORT (SQ) ---
EXAM DESCRIPTION: CTA CHEST COMPLETED DATE/TIME: 07/31/2019 9:52 am REASON FOR STUDY: R91.1 SOLITARY PULMONARY NODULE R91.1 SOLITARY PULMONARY NODULE COMPARISON: CT of the chest with contrast from 03/26/2019. TECHNIQUE: CT scan of the chest performed using helical scanning technique with dynamic intravenous contrast injection. Images reviewed with lung, soft tissue and bone windows. Reconstructed coronal and sagittal MPR images reviewed. Additional 3 dimensional post-processing performed to develop Maximal Intensity Projection images (IA P). All images stored on PACS. All CT scanners at this facility use dose modulation, iterative reconstruction, and/or weight based d osing when appropriate to reduce radiation dose to as low as reasonably achievable (ALARA). [facility]: Dose Right [facility]: CareDose [facility]: Dose Right [facility]: Teradose 4D [facility]: Lakoo CONTRAST TYPE AND DOSE: Contrast/concentration: Isovue 350.00 mg/ml; Total Contrast Delivered: 64.0 ml; Total Saline Delivered: 81.2 ml Contrast bolus optimized for evaluation of the pulmonary arteries. RENAL FUNCTION: GFR > 60. RADIATION DOSE: CT Rad equipment meets quality standard of care and radiation dose reduction techniq ues were employed. CTDIvol: 7.5 - 14.4 mGy. DLP: 602 mGy-cm. . LIMITATIONS: None. FINDINGS: LUNGS AND PLEURA: The trachea and main bronchi are patent. The lobular branching tubular opacity within the posterior basal segment of the left lower lobe that measures approximately 3.5 cm in craniocaudal diameter is unchanged and could represent impacted mucus within an intra-segmental br onchus. There is no other pulmonary nodular mass. There is no consolidation, ground-glass opacifica tion, pleural effusion or pneumothorax. AORTA AND GREAT VESSELS: No thoracic aortic dissection or aneurysm. HEART: Mild cardiomegaly and moderate to severe atherosclerotic calcification of the coronary arterie s. There is no pericardial effusion. PULMONARY ARTERIES: The main pulmonary artery measures up to 3.2 cm in transverse diameter. There is no embolus. HILAR AND MEDIASTINAL STRUCTURES: No enlarged mediastinal hilar adenopathy. HARDWARE: None in the chest. UPPER ABDOMEN: The gallbladder is surgically absent. The diffuse low attenuation of hepatic parenchy ma is consistent with hepatic steatosis. The spleen is enlarged and it measures up to 17 cm in AP di ameter. There is left adrenal nodule that measures approximately 1.7 x 1.7 cm. The pancreas and the right adrenal gland are normal in appearance. There is a hiatal hernia. THYROID AND OTHER SOFT TISSUES: No focal abnormality of the thyroid gland that is apparent on CT. Th ere is no enlarged supraclavicular or axillary adenopathy. BONES: Findings of DISH in the thoracic spine. The thoracic vertebral body heights are preserved. T here is no fracture or osseous lesion. 3D MIPS: Confirm above findings. OTHER: No other significant finding. IMPRESSION: 1. The lobular branching tubular opacity within the posterior basal segment of the left lower lobe that measures approximately 3.5 cm in craniocaudal diameter is unchanged and could represe nt impacted mucus within an intra-segmental bronchus. A follow-up CT in 6 months is recommended. 2. No acute cardiopulmonary process. 3. Other findings as detailed above. COMMENT: Quality ID # [id number]: Final reports with documentation of one or more dose reduction techniques (e.g., Automated exposure control, adjustment of the mA and/or kV according to patient size, use of iterative reconstruction technique) TECHNICAL DOCUMENTATION: JOB ID: [id number] [employer]- All Rights Reserved Reading location - IP/workstation name: [email or web address]
== END ==
LOC: RAD 09:04
PROVIDERS: ATTEND Family Medicine
DX: R91.1 Solitary pulmonary nodule (principal)
CPT/HCPCS: 71275; 82565